=== PATIENT | male | born 2000 | race Two or more races ===

== ENCOUNTER 2021-01-31 02:11 | Emergency (ER) | payer MEDICAID, SELFPAY ==
[2021-01-31 02:12] VITALS: BP 119/71; BP 119/77; PULSE 85; PULSE 86; RESP 19; RESP 25; TEMP 36.7; TEMP 36.9; O2SAT 96; BMI 21.3
--- NOTE | 2021-01-31 02:15 | EKG12_ITS ---
Test Reason : CP Blood Pressure : / mmHG Vent. Rate : 085 BPM Atrial Rate : 085 BPM P-R Int : 134 ms QRS Dur : 106 ms QT Int : 372 ms P-R-T Axes : 073 084 045 degrees QTc Int : 442 ms Normal sinus rhythm Incomplete right bundle branch block Confirmed by SHAHRAM TURNER, PAVITHRA ([id number]), editorial cartoonist AYANA GRAYSON ([id number]) on 02/01/2021 9:16:10 AM Referred By: [place] Confirmed By:PAVITHRA OMALLEY MD
--- NOTE | 2021-01-31 02:16 | EDS_ITS ---
HPI History of Present Illness Chief Complaint: Chest Pain Narrative 20-year-old male presenting with left-sided rib pain. He states that this started yesterday upon awakening. He described it as mild. Patient states he was able to to do PT with his human resources recruiter and states he did a lot of push-ups and yesterday. He states that the pain is worse now in the left lateral ribs. He denies any trauma. Patient states he is currently homeless and lives in a homeless retirement. He does not have any history of cardiac disease. No history of DVT/PE. No risk factors for DVT/PE. Denies cough, fever. He admits to some mild shortness of breath. Prior Similar Symptoms: No Recent Illness/Hospitalization: No PE Risk Factors: Negative for Recent Travel/Surgery, Recent Immobilization, Prior DVT or PE, Cancer and OCP + Smoking + >/=35 TAD Risk Factors: Negative for Marfan's Syndrome, Hypertension and Family History PFSH PFSH Home Medications NK 01/31/21 [History Last Taken Unknown] Allergy/AdvReac Type Severity Reaction Status Date / Time No Known Allergies Allergy Verified 01/31/21 02:17 Social History Smoking Status: Current some day smoker ROS ROS ED Constitutional Constitutional ED: Denies chills, fever(s) or sweats Eyes Eyes: Denies blurry vision or change in vision ENT ENT ED: Denies ear pain, rhinorrhea or sore throat Cardiovascular Cardiovascular: Reports chest pain; Denies palpitations or racing heartbeat Respiratory/Chest Respiratory/Chest: Reports dyspnea; Denies cough or sputum Gastrointestinal Gastrointestinal: Denies abdominal pain, constipation, diarrhea or vomiting Genitourinary Genitourinary ED: Denies dysuria, hematuria or urinary frequency Musculoskeletal Musculoskeletal: Denies arthralgias, myalgias or neck pain Integumentary Denies abscess, Abrasions or rash Neurologic Neurologic: Denies headache(s), paresthesias or weakness Psychiatric Psychiatric: Denies anxiety, depression, suicidal ideation or suicidal thoughts Endocrine Endocrinology: Denies polydipsia or polyuria EXAM Physical Exam Const Vital Signs: 01/31/21 02:12 01/31/21 02:21 01/31/21 02:24 Temperature 98.4 F Temperature Source Oral Pulse Rate 85 Respiratory Rate 25 H Respiratory Effort Normal Blood Pressure 119/77 Blood Pressure Mean 91 Pulse Ox 96 96 Oxygen Delivery Method Room Air Room Air 01/31/21 03:51 Temperature Temperature Source Pulse Rate 80 Respiratory Rate 17 Respiratory Effort Blood Pressure 113/79 Blood Pressure Mean 90 Pulse Ox 97 Oxygen Delivery Method Room Air General Appearance ED: Negative for pallor HEENT Reports normocephalic, head/scalp atraumatic and moist mucous membranes Eyes PERRL and EOMs intact bilaterally Neck no lymphadenopathy and supple Chest Wall inspection of chest normal and palpation of chest normal Resp normal respiratory effort and clear to auscultation bilaterally Resp Narrative: Tachypneic at 2525 breaths. Tenderness to palpation left lateral ribs in the midaxillary line. No crepitus, bruising, deformity. Auscultation: Negative for rales, rhonchi or wheezes Cardio regular rate and regular rhythm GI normal to inspection, nondistended, normoactive bowel sounds and non-distended Auscultation: normoactive bowel sounds Palpation: soft Narrative: Deferred Back/Spine no CVA tenderness General Back: Negative for CVA tenderness Cervical Spine: Negative for cervical spine tenderness Extremity normal to inspection General Extremety ED: Yes edema and tenderness General Extremity: edema Neuro oriented x3 and CN's II-XII intact bilaterally Sensorium / Orientation: alert Motor Exam: strength 5/5 throughout Psych mental status grossly normal Attitude: No agitated Skin no rashes or lesions noted and no wounds General Skin Exam: Negative for jaundice or pallor Heart Score History: Slightly/Non-Suspicious ECG: Normal Age: </= 45 years Risk Factors: No Risk Factors Score: 0 MDM MDM MDM Narrative Medical decision making narrative: Patient seen and evaluated for left-sided rib pain. Patient states he did work out quite vigorously. The pain has been there on the left side of his chest since 7 AM yesterday. EKG performed on arrival shows a sinus rhythm at 85 bpm without signs of ischemic change as interpreted by myself. Chest x-ray shows no acute cardiopulmonary process as interpreted by myself and radiology does agree. CBC, BMP, troponin all within normal limits. D-dimer is negative. Patient was given morphine and Zofran and feels improved on reevaluation. Patient's pain is likely musculoskeletal. His heart score is 0 and since he has had the pain for more than 12 hours I believe he does not need a second troponin and EKG. Patient will be discharged home in stable condition. Lab Data Attestation: I reviewed the patient's lab results. Labs: Laboratory Results - last 24 hr 01/31/21 01/31/21 01/31/21 02:04 02:04 02:04 WBC 10.5 RBC 4.89 Hgb 15.4 Hct 43.8 MCV 89.6 MCH 31.5 MCHC 35.2 RDW Std Deviation 40.3 RDW Coeff of Marilee 12.2 Plt Count 234 MPV 9.5 Immature Gran % (Auto) 0.300 Neut % (Auto) 64.4 Lymph % (Auto) 26.3 [place] % (Auto) 7.3 Eos % (Auto) 1.1 Baso % (Auto) 0.6 Absolute Neuts (auto) 6.8 Absolute Lymphs (auto) 2.76 Nucleated RBC % 0 D-Dimer Quant (PE/DVT) <= 0.27 Sodium 139 Potassium 3.3 L Chloride 107 Carbon Dioxide 23.0 Anion Gap 9 BUN 12 Creatinine 0.90 Estim Creat Clear Calc 133.14 Est GFR (MDRD) Af Amer 139 Est GFR (MDRD) Non-Af 115 BUN/Creatinine Ratio 13.4 Glucose 92 Calcium 9.3 Troponin I 0.033 Radiography Diagnostic Testing: Radiology Impression Chest X-Ray 01/31/21 02:32 IMPRESSION: Normal x-ray examination of the chest. Electronically Signed: Farooq Matamoros MD at 3:18 EDT , Service support , Discharge Plan Triage Chief Complaint: Chest Pain ED Provider: Jas Garcia Dx/Rx/DC Orders Instructions: ED Chest Pain, Noncardiac Prescriptions: No Action NK RF: 0 Primary Care Provider: Care Physician,No Primary Referrals: Rossy Hernandez [facility] [Provider Group] - As Needed Care Physician,No Primary [Primary Care Provider] - As Needed ( ) Disposition Patient Disposition: Home, self care
[2021-01-31 02:24] VITALS: O2SAT 96
[2021-01-31 02:24] LABS: Absolute Lymphocyte Count 2.76 X10^3/uL (0.83-4.51); Absolute Neutrophil Count 6.8 X10^3/uL (2.0-7.7); Basophil# 0.06 X10^3/uL; Basophil% 0.6 % (0-1); Eosinophil# 0.12 X10^3/uL; Eosinophils% 1.1 % (0-5); Hematocrit 43.8 % (40-54); Hemoglobin 15.4 g/dL (13.0-16.5); Lymphocyte # 2.76 X10^3/ul (0.83-4.51); Lymphocyte % 26.3 % (19-41); Mean Corp Hgb Conc 35.2 g/dL (32-36); Mean Corpuscular Hgb 31.5 pg (27.0-32.0); Mean Corpuscular Volume 89.6 fL (80-94); Mean Platelet Vol. 9.5 fl (6.2-12.0); Monocyte# 0.77 X10^3/uL; Monocyte% 7.3 % (0-10); NRBC Flagged by Analyzer 0 % (0-5); Neutrophil # 6.77 X10^3/uL (2.7-7.7); Neutrophil % 64.4 % (47-70); Platelet Count 234 K/mm3 (150-450); RBC Distribution Width CV 12.2 % (11.6-14.6); RBC Distribution Width SD 40.3 fl (35.1-43.9); Red Blood Count 4.89 M/mm3 (4.6-6.2); White Blood Count 10.5 K/mm3 (4.4-11.0)
[2021-01-31] MEDS: Morphine 4 MG/ML Syringe IV (02:31)
[2021-01-31] MEDS: 0.9% Normal Saline 1,000 ML 999 ML IV (02:31)
[2021-01-31] MEDS: Ondansetron 4 MG/2 ML Vial IV (02:31)
--- NOTE | 2021-01-31 02:32 | RAD_ITS ---
STUDY: X-RAY CHEST REASON FOR EXAM: Male, 20 years old. chest pain TECHNIQUE: Single AP portable view of the chest. COMPARISON: None. FINDINGS: No focal infiltrates or effusions. No pneumothorax. Normal size heart. Normal mediastinum and reece. Normal visualized pulmonary arteries. Normal visualized aortic arch and descending thoracic aorta. Normal visualized thoracic spine. Normal visualized ribs, clavicles, and shoulders. There is no demonstrated abnormality of the visualized soft tissue structures of the upper abdomen. RAD/Chest 1 View (Portable) IMPRESSION: Normal x-ray examination of the chest. Electronically Signed: Farooq Matamoros MD at 3:18 EDT , Service support ,
[2021-01-31 02:43] LABS: Anion Gap 9 (5-15); BUN 12 mg/dL (7-18); BUN/Creat Ratio 13.4 RATIO (10-20); Calcium,Total 9.3 mg/dL (8.5-10.1); Chloride 107 mmol/L (98-107); EST Glomerular Filtration Rate 115 mL/min (>60); Est Glom Filt Rate - Afr Amer 139 mL/min (>60); Estimated Creatinine Clearance 133.14 ml/min; Glucose 92 mg/dL (74-106); Potassium 3.3 mmol/L (3.5-5.1); Sodium Level 139 mmol/L (136-145)
[2021-01-31 03:16] LABS: D-Dimer Quantitative (DVT/PE) <= 0.27 FEU/ug/m (0.27-0.49)
[2021-01-31 03:51] VITALS: BP 113/79; PULSE 80; RESP 17; O2SAT 97
[2021-01-31 03:54] VITALS: BP 113/79; PULSE 71; RESP 19; TEMP 36.6; O2SAT 98
== END 2021-01-31 05:20 | disposition home or self-care (01) ==
PROVIDERS: Emergency Provider Student in an Organized Health Care Education/Training Program
DX: R07.81 Pleurodynia (principal); F17.200 Nicotine dependence, unspecified, uncomplicated
CPT/HCPCS: 71045; 80048; 84484; 85025; 85379; 93005; 96361; 96374; 96375; 99285; J7030; J2405